=== PATIENT | female | born 1965 ===

== ENCOUNTER 2017-07-08 14:20 | Inpatient (IN) | payer BC ==
--- NOTE | 2017-07-08 14:38 | ED PDOC ---
Arrival/HPI - General Time Seen by Provider: 07/08/17 14:38 Historian: Patient, Spouse - History of Present Illness Narrative History of Present Illness (Text): 07/08/17 14:38 Patient came with her spouse. She stated she prefers to speak about the reason she came to the Emergency department when she gets into a room. She is currently sitting on the hallway. 07/08/17 16:45 This 52 yo female with pmh fibromyalgia, anxiety, presents to this Emergency department for psychiatric evaluation. Patient and spouse stated she has been feeling "Depressed". Patient stated she has been feeling depressed for a long time. But more recent she has been having ideas to hurt herself. She wanted to drive her car and crash. Past Medical History - Provider Review Nursing Documentation Reviewed: Yes Family/Social History - Physician Review Nursing Documentation Reviewed: Yes Family/Social History: Other (noncontributory) Allergies/Home Meds Allergies/Adverse Reactions: Allergies No Known Allergies Allergy (Verified 07/09/17 00:18) Home Medications: Home Meds Medication Instructions Recorded Confirmed DULoxetine [Cymbalta] 10 mg PO DAILY 07/08/17 07/08/17 Hydrochlorothiazide [Microzide] 25 mg PO DAILY 07/08/17 07/08/17 Meloxicam [Mobic] 15 mg PO DAILY 07/08/17 07/08/17 Gabapentin 100 mg PO BID 07/09/17 07/09/17 Pantoprazole Sodium [Protonix] 40 mg PO DAILY PRN 07/09/17 07/09/17 Review of Systems - Review of Systems Constitutional: Normal. absent: Fatigue, Weight Change, Fevers Eyes: Normal ENT: Normal Respiratory: Normal Cardiovascular: Normal Gastrointestinal: Normal Genitourinary Female: Normal Musculoskeletal: Normal Skin: Normal Neurological: Normal Endocrine: Normal Hemo/Lymphatic: Normal Psychiatric: Anxiety, Depression, Suicidal Ideation Physical Exam Vital Signs Temp Pulse Resp BP Pulse Ox 07/08/17 15:01 98.4 F 82 18 136/77 99 Temperature: Afebrile Blood Pressure: Normal Pulse: Regular Respiratory Rate: Normal Appearance: Positive for: Well-Appearing, Non-Toxic, Comfortable Pain Distress: None Mental Status: Positive for: Alert and Oriented X 3 - Systems Exam Head: Present: Atraumatic, Normocephalic Pupils: Present: PERRL Extroacular Muscles: Present: EOMI Conjunctiva: Present: Normal Mouth: Present: Moist Mucous Membranes Neck: Present: Normal Range of Motion Respiratory/Chest: Present: Clear to Auscultation, Good Air Exchange. No: Respiratory Distress, Accessory Muscle Use Cardiovascular: Present: Regular Rate and Rhythm, Normal S1, S2. No: Murmurs Abdomen: Present: Normal Bowel Sounds. No: Tenderness, Distention, Peritoneal Signs Back: Present: Normal Inspection Upper Extremity: Present: Normal Inspection. No: Cyanosis, Edema Lower Extremity: Present: Normal Inspection. No: Edema Neurological: Present: GCS=15, CN II-XII Intact, Speech Normal Skin: Present: Warm, Dry, Normal Color. No: Rashes Psychiatric: Present: Alert, Oriented x 3, Anxious, Depressed Mood, Suicidal Ideation Medical Decision Making ED Course and Treatment: 07/08/17 18:14 Patient feels very anxious at this time, and she is requesting medication to calm her down. I ordered Ativan 1 mg PO 07/08/17 20:53 PES screener had consulted with psychiatrist Dr. Pinto who recommends admission for major depression Re-evaluation Time: 20:53 Reassessment Condition: Re-examined, Improving,but remains with symptoms - Lab Interpretations Lab Results: 07/08/17 17:35 07/08/17 17:35 Lab Results 07/08/17 17:40: Urine Opiates Screen Negative, Urine Methadone Screen Negative, Ur Barbiturates Screen Negative, Ur Phencyclidine Scrn Negative, Ur Amphetamines Screen Negative, U Benzodiazepines Scrn Negative, U Oth Cocaine Metabols Negative, U Cannabinoids Screen Negative 07/08/17 17:40: Urine Color Yellow, Urine Appearance Sl cloudy, Urine pH 6.0, Ur Specific [place] 1.010, Urine Protein Negative, Urine Glucose (UA) Negative, Urine Ketones 15 H, Urine Blood Negative, Urine Nitrate Negative, Urine Bilirubin Negative, Urine Urobilinogen 0.2, Ur Leukocyte Esterase Small H, Urine RBC Negative, Urine WBC 0 - 2, Ur Epithelial Cells Many, Urine Bacteria Few, Urine HCG, Qual Negative 07/08/17 17:35: Alcohol, Quantitative < 10 07/08/17 17:35: Salicylates < 1 L, Acetaminophen < 10.0 L 07/08/17 17:35: Sodium 141, Potassium 3.5 L, Chloride 104, Carbon Dioxide 24, Anion Gap 16, BUN 17, Creatinine 0.6 L, Est GFR ( Amer) > 60, Est GFR ( Non-Af Amer) > 60, Random Glucose 80, Calcium 10.5, Total Bilirubin 0.4, AST 28 , ALT 46, Alkaline Phosphatase 82, Total Protein 7.0, Albumin 4.2, Globulin 2.8 , Albumin/Globulin Ratio 1.5 07/08/17 17:35: WBC 6.8, RBC 4.54, Hgb 13.7, Hct 40.3, MCV 88.8, MCH 30.2, MCHC 34.0, RDW 13.0, Plt Count 291, MPV 9.8, Gran % 64.5, Lymph % (Auto) 29.5, [place] % (Auto) 4.0, Eos % (Auto) 1.6, Baso % (Auto) 0.4, Gran # 4.39, Lymph # (Auto) 2.0, [place] # (Auto) 0.3, Eos # (Auto) 0.1, Baso # (Auto) 0.03 I have reviewed the lab results: Yes Interpretation: No clinic. lab abnormalty - RAD Interpretation Radiology Orders: 07/08/17 16:54 CHEST PORTABLE [RAD] Stat - Medication Orders Current Medication Orders: Acetaminophen (Tylenol 325mg Tab) 650 mg PO Q6H PRN PRN Reason: Pain, moderate (4-7) Al Hydrox/Mg Hydrox/Simethicone (Maalox Plus 30 Ml) 30 ml PO DAILY PRN PRN Reason: Indigestion / Heartburn Duloxetine HCl (Cymbalta) 30 mg PO DAILY [facility] Last Admin: 07/09/17 10:35 Dose: 30 mg Ergocalciferol (Drisdol 50,000 Intl Units Cap) 1 cap PO Q7D [facility] Gabapentin (Neurontin) 100 mg PO BID JOSELINE PRN Reason: Protocol Last Admin: 07/09/17 10:35 Dose: 100 mg Behavioural Document 07/09/17 10:35 RGO (Rec: 07/09/17 10:35 RGO [id number]) Maintenance Maintenance Dose Yes Home Med (Home Med) 1 unit PO DAILY PRN PRN Reason: Constipation Hydroxychloroquine Sulfate (Plaquenil) 200 mg PO DAILY [facility] Last Admin: 07/09/17 14:34 Dose: 200 mg Lorazepam (Ativan) 0.5 mg PO Q6H PRN; Protocol PRN Reason: Anxiety Last Admin: 07/09/17 10:40 Dose: 0.5 mg Behavioural Document 07/09/17 10:40 RGO (Rec: 07/09/17 10:40 RGO [id number]) Maintenance Maintenance Dose No Nonmedicinal Nonmedicinal Interventions Therapeutic Communication Behavior Behavior for Medication: Anxiety Re-Assess: Reassess Psych Meds Document 07/09/17 11:40 RGO (Rec: 07/09/17 13:25 RGO [id number]) Reassess Psych Med Effective Magnesium Hydroxide (Milk Of Magnesia) 30 ml PO DAILY PRN PRN Reason: Constipation Meloxicam (Mobic) 15 mg PO DAILY [facility] Last Admin: 07/09/17 10:35 Dose: 15 mg Pantoprazole Sodium (Protonix Ec Tab) 40 mg PO DAILY PRN PRN Reason: Indigestion / Heartburn Zolpidem Tartrate (Ambien) 5 mg PO HS PRN; Protocol PRN Reason: Insomnia Discontinued Medications Lorazepam (Ativan) 1 mg PO ONCE ONE PRN Reason: Protocol Stop: 07/08/17 18:18 Last Admin: 07/08/17 20:28 Dose: 1 mg Meloxicam (Mobic) 15 mg PO DAILY PRN PRN Reason: breakthrough pain Disposition/Present on Arrival - Present on Arrival Any Indicators Present on Arrival: No History of DVT/PE: No History of Uncontrolled Diabetes: No Urinary Catheter: No History of Decub. Ulcer: No - Disposition Have Diagnosis and Disposition been Completed?: Yes Diagnosis: Major depression Disposition: HOSPITALIZED Disposition Time: 20:54 Patient Plan: Admission Patient Problems: Current Active Problems Problem Status Onset Major depression Acute Condition: STABLE
[2017-07-08 15:03] VITALS: O2SAT 99
[2017-07-08 17:55] LABS: BASO # 0.03 K/mm3 (0.0-2.0); BASO % 0.4 % (0.0-3.0); EOS # 0.1 (0.0-0.7); EOS % 1.6 % (1.5-5.0); GRAN # 4.39 (1.4-6.5); GRAN % 64.5 % (50.0-68.0); HEMOGLOBIN 13.7 g/dL (12.0-16.0); LYMPH % 29.5 % (22.0-35.0); MEAN CELL VOLUME 88.8 fl (80.0-105.0); MEAN CORPUSCULAR HEMOGLOBIN 30.2 pg (25.0-35.0); MEAN PLATELET VOLUME 9.8 fl (7.0-11.0); MONO # 0.3 (0.1-0.6); RBC 4.54 10^6/uL (3.5-6.1); WHITE BLOOD COUNT 6.8 10^3/ul (4.5-11.0)
[2017-07-08 18:03] LABS: URINE BILIRUBIN NEGATIVE (NEGATIVE); URINE BLOOD NEGATIVE (NEGATIVE); URINE GLUCOSE (UA) NEGATIVE (NEGATIVE); URINE LEUKOCYTE ESTERASE SMALL Leu/uL (NEGATIVE); URINE NITRATE NEGATIVE (NEGATIVE); URINE PROTEIN NEGATIVE mg/dL (<30 mg/dL); URINE UROBILINOGEN 0.2 E.U./dL (<1 E.U./dL)
[2017-07-08 18:09] LABS: URINE APPEARANCE SL CLOUDY (CLEAR); URINE COLOR YELLOW (YELLOW)
[2017-07-08 18:10] LABS: ALB/GLOB RATIO 1.5 (1.1-1.8); ALBUMIN 4.2 g/dL (3.0-4.8); ALT/SGPT 46 U/L (7-56); AST/SGOT 28 U/L (14-36); BLOOD UREA NITROGEN 17 mg/dL (7-21); CALCIUM 10.5 mg/dL (8.4-10.5); GFR AFRICAN-AMERICAN > 60; GFR NON-AFRICAN AMERICAN > 60
[2017-07-08 18:17] LABS: ACETAMINOPHEN < 10.0 ug/ml (10.0-20.0); SALICYLATE < 1 mg/dL (2.0-20.0)
[2017-07-08 18:27] LABS: BARBITURATES, UR NEGATIVE (NEGATIVE); BENZODIAZEPINES, UR NEGATIVE (NEGATIVE); OPIATES, UR NEGATIVE (NEGATIVE); PHENCYCLIDINE, UR NEGATIVE (NEGATIVE)
[2017-07-08 18:33] LABS: HCG,QUALITATIVE URINE NEGATIVE (NEGATIVE); URINE BACTERIA FEW (NEG); URINE EPITHELIAL CELLS MANY /hpf (0-5); URINE RBC NEGATIVE /hpf (0-2); URINE WBC 0 - 2 /hpf (0-6)
[2017-07-08] MEDS ORDERED: Magnesium Hydroxide Susp 30 ml UD PO PRN (23:59)
[2017-07-08] MEDS ORDERED: Alum-Mag Hydrox-Simethicone Susp (30 mL) PO PRN (23:59)
[2017-07-09] MEDS ORDERED: Pantoprazole 40 mg EC Tab PO PRN (00:14)
[2017-07-09 00:21] VITALS: BMI 31.2
--- NOTE | 2017-07-09 01:14 | PCM.BM ---
Treatment Plan Problems - Problems identified on initial assessmt Ineffective Coping Date Initiated: 07/08/17 Time Initiated: 22:30 Assessment reference: NA Status: Active Priority: 1 Hopelessness/Helplessness Date Initiated: 07/08/17 Time Initiated: 22:30 Assessment reference: NA Status: Active Priority: 2 Feelings of Worthlessness Date Initiated: 07/08/17 Time Initiated: 22:30 Assessment reference: NA Status: Active Priority: 3 Altered Sleep Patterns Date Initiated: 07/08/17 Time Initiated: :30 Assessment reference: NA Status: Active Priority: 4 Treatment assets and liabiliti Patient Assests: cooperative, ADL independent, good support system, cognitively intact, good interpersonal skills, strong catalina Patient Liabilities: physical pain, medical problems - Milieu Protocol Maintain good personal hygiene: daily Encourage regular showers, every shift Remind patient to perform daily oral care, every shift Assist patient to perform ADL's Maintain personal safety: every shift Educate patient to report safety concerns to staff, every shift Monitor environment for contraband/sharps Medication safety: Monitor for expected outcome, potential side effects: every shift, Assess barriers to learning: every shift, Assess readiness for medication education: every shift Family Contact Family involvement: Family/SO is involved Family contact: Patient agrees to contact - Goals for Treatment Patient goals for treatment: "I don't want to hurt myself. My family will be destroyed. I am Ep[employer], too." Discharge/Continuing Care - Education Needs Education Needs: Family Medication, Family Diagnosis/Disease Process, Family Coping Skills, Family Pain, Family Health Practices/Safety, Family Aftercare Safety Plan, Patient Medication, Patient Diagnosis/Disease Process, Patient Coping Skills, Patient Anger Management skills, Patient Placement options, Patient Community resources, Patient Activities of Daily Living, Patient Pain, Patient Nutrition, Patient Uses of Medical Equipment, Patient Health Practices/ Safety, Patient Personal Hygiene/Grooming, Patient Aftercare Safety Plan, Patient Other - Discharge Discharge Criteria: Tolerates medication w/o severe side effects, Free of Suicidal thoughts, Normal sleep pattern
[2017-07-09 07:02] VITALS: RESP 20
--- NOTE | 2017-07-09 08:34 | RAD ---
HISTORY: PES eval COMPARISON: No prior. FINDINGS: LUNGS: The lungs are well inflated and clear. PLEURA: No significant pleural effusion identified, no pneumothorax apparent. CARDIOVASCULAR: Normal. OSSEOUS STRUCTURES: No significant abnormalities. VISUALIZED UPPER ABDOMEN: Normal. OTHER FINDINGS: None. IMPRESSION: No active pulmonary disease.
[2017-07-09 08:53] LABS: GLUCOSE,FASTING 86 mg/dL (65-110); HDL CHOLESTEROL 61 mg/dL (29-60)
[2017-07-09 09:04] LABS: LDL CHOLESTEROL 128 mg/dL (0-129)
[2017-07-09] MEDS ORDERED: LINZESS 145 MG PO PRN (10:31)
--- NOTE | 2017-07-09 10:41 | CARD ---
APPROVED REPORT EKG Measurement Heart [id number] <Conclusion> Normal sinus rhythm Normal ECG
--- NOTE | 2017-07-09 17:13 | CON ---
DATE: 07/09/2017 NEUROLOGY CONSULT CHIEF COMPLAINT: Evaluate for fibromyalgia. HISTORY OF PRESENT ILLNESS: This is a 52-year-old woman with history of anxiety, rheumatoid arthritis, lupus, fibromyalgia, and depression, who came in for worsening depressive affects, felt like she has been depressed for long time, having lot of stress. Therefore, a psychiatric evaluation and management are undergoing in the hospital and was consulted for fibromyalgia. She has diffuse musculoskeletal pain, for which she is on Cymbalta and gabapentin, she is on a good therapeutic dose. Currently, she is more depressed and I think we should continue to focus on her depression management rather than fibromyalgia at this time and can follow with her tray setter as an outpatient. No focal weakness of the extremities. No current paresthesias at this time. PAST MEDICAL HISTORY: History of rheumatoid arthritis, SLE, fibromyalgia, and anxiety. REVIEW OF SYSTEMS: A 14-point review of systems is negative except as per the HPI. ALLERGIES: NO KNOWN DRUG ALLERGIES. MEDICATIONS: Reviewed by nursing reconciliation sheet. FAMILY HISTORY: Noncontributory. SOCIAL HISTORY: No illicit drug use, smoking, or EtOH abuse. PHYSICAL EXAMINATION: VITAL SIGNS: Temperature 98.5, pulse rate 95, blood pressure of 111/77, respiratory rate 20, oxygen saturation 99% by room air. GENERAL: The patient is sitting up in bed, in no acute distress. HEENT: Atraumatic, normocephalic. PERRLA. Extraocular muscles intact. NECK: Supple. No JVD, no adenopathy noted. LUNGS: Clear to auscultation. No adventitious sounds. HEART: S1 and S2. Normal rate and rhythm. No murmurs, rubs, or gallops. ABDOMEN: Soft, nontender, and nondistended. Bowel sounds are present. EXTREMITIES: No clubbing. No cyanosis. Peripheral pulses 2+ felt bilaterally. NEUROLOGIC: She has a very flat and anxious effect. She is mostly depressed. Speech is fluent without any errors. Cranial nerves II through XII intact. Motor exam: Moves all extremities equally. No pronator drift seen. Sensory exam: Light touch, pinprick, proprioception, and vibration intact. DTRs are 2+ throughout, one at the ankles. Coordination: [id number] intact. Gait is deferred for now. LABORATORY DATA: Sodium 141, potassium 3.5, chloride 104, carbon dioxide 24. BUN of 17, creatinine 0.6. Random glucose of 86. ASSESSMENT AND PLAN: This is a 52-year-old woman with history of systemic lupus erythematosus, rheumatoid arthritis, fibromyalgia, anxiety, depression, who comes in with worsening depressive symptoms, currently being managed as inpatient fibromyalgia is most likely over myofascial pain syndrome. Recommend to continue her current dose of Cymbalta 30 mg p.o. daily and could increase her gabapentin to 200 p.o. b.i.d. At this time, continue psychiatric management in regards to her depression and continue Plaquenil in regards to her underlying history of rheumatoid arthritis and systemic lupus erythematosus and continue current present medical management. Thank you for this consult. Tylor Thibodeaux MD
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
[2017-07-11] MEDS: LINZESS 145 MG PO PRN (09:15)
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
--- NOTE | 2017-07-11 21:34 | PCM.BM ---
Treatment Plan Problems - Problems identified on initial assessmt Ineffective Coping Date Initiated: 07/08/17 Time Initiated: 22:30 Assessment reference: NA Status: Active Priority: 1 Hopelessness/Helplessness Date Initiated: 07/08/17 Time Initiated: 22:30 Assessment reference: NA Status: Active Priority: 2 Feelings of Worthlessness Date Initiated: 07/08/17 Time Initiated: 22:30 Assessment reference: NA Status: Active Priority: 3 Altered Sleep Patterns Date Initiated: 07/08/17 Time Initiated: 22:30 Assessment reference: NA Status: Active Priority: 4 Treatment assets and liabiliti Patient Assests: cooperative, ADL independent, good support system, cognitively intact, good interpersonal skills, strong catalina Patient Liabilities: physical pain, medical problems - Diagnosis (1) Major depression Status: Acute Interventions: 07/11/17 21:33 * Assess/adjust medications daily and /or as needed * Discuss risks, benefits, side effects and alternatives of medications * See patient on an individual basis 7x/week to assess level of suicidal thoughts * - Milieu Protocol Maintain good personal hygiene: daily Encourage regular showers, every shift Remind patient to perform daily oral care, every shift Assist patient to perform ADL's Maintain personal safety: every shift Educate patient to report safety concerns to staff, every shift Monitor environment for contraband/sharps Medication safety: Monitor for expected outcome, potential side effects: every shift, Assess barriers to learning: every shift, Assess readiness for medication education: every shift Milieu Narrative: Remains hopeless, helpless, depressed, suicidal.iiiiiiiiiiiiiiiiiiiiiiiiiiiiiiiiiiiiiiiiiiiiiiiiiiiiiiiiiiiiiiiiiiiiiii iiiiiiiiiiiiiiiiiiiikkkkkkkkiii Family Contact Family involvement: Family/SO is involved - Goals for Treatment Patient goals for treatment: "I don't want to hurt myself. My family will be destroyed. I am Buddhist, too." Discharge/Continuing Care - Education Needs Education Needs: Family Medication, Family Diagnosis/Disease Process, Family Coping Skills, Family Pain, Family Health Practices/Safety, Family Aftercare Safety Plan, Patient Medication, Patient Diagnosis/Disease Process, Patient Coping Skills, Patient Anger Management skills, Patient Placement options, Patient Community resources, Patient Activities of Daily Living, Patient Pain, Patient Nutrition, Patient Uses of Medical Equipment, Patient Health Practices/ Safety, Patient Personal Hygiene/Grooming, Patient Aftercare Safety Plan, Patient Other - Discharge Discharge Criteria: Tolerates medication w/o severe side effects, Free of Suicidal thoughts, Normal sleep pattern - Treatment Team Participation Patient/Family/SO Statement: Remains hopeless, helpless, depressed, suicidal.iiiiiiiiiiiiiiiiiiiiiiiiiiiiiiiiiiiiiiiiiiiiiiiiiiiiiiiiiiiiiiiiiiiiiii iiiiiiiiiiiiiiiiiiiikkkkkkkkiii
[2017-07-12] MEDS: LINZESS 145 MG PO PRN (12:47)
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
--- NOTE | 2017-07-12 18:15 | CON ---
DATE: HISTORY OF PRESENT ILLNESS: The patient is a 52-year-old female, who is admitted to under Dr. Pinto's care with the diagnoses of major depression and suicidal ideation. The patient is new to me as I have been called for medical consultation. The patient has a history of fibromyalgia and lupus. There was an element of posttraumatic stress disorder as the patient lost her 5-year-old daughter years ago. Apparently, the patient's suicidal ideation had increased over the past several weeks. As the patient's became aware, he urged her to present to the emergency room, which she did and for which she is now being treated. When seen, the patient was resting comfortably. She does not appear to be in any acute distress. She was awake, alert, and oriented and willingly gave her history. SOCIAL HISTORY: She apparently is a nonsmoker, nonalcoholic drinker. She is with two other children at home. MEDICATIONS: Include, Plaquenil, Microzide, Mobic, Protonix, Cymbalta, and gabapentin. REVIEW OF SYSTEMS: Otherwise unremarkable. The patient does complain of fibromyalgia symptoms all over. During the interview, the patient began crying, hoping that she would get better, so she will be able to return to her children at home. PHYSICAL EXAMINATION: HEAD, EYES, EARS, NOSE AND THROAT: Unremarkable. NECK: Supple with no lymphadenopathy, no goiter. LUNGS: Clear to auscultation and percussion. HEART: Regular. No murmurs are appreciated. ABDOMEN: Soft, nontender with no organomegaly. EXTREMITIES: Free of cyanosis, clubbing, or edema. NEUROLOGIC: There were no focal neurological signs. LABORATORY STUDIES: Show white blood cell count to be 6.8, hemoglobin and hematocrit of 13.7 and 40.3 respectively, platelet count is 291. Sodium is 141, potassium is 3.5, blood urea nitrogen is 17, creatinine 0.6, nonfasting glucose is 80. Her thyroid stimulating hormone is normal at 3.11. Liver function tests were normal. Her EKG showed regular sinus rhythm. Chest x-ray showed no acute disease. ASSESSMENT AND PLAN: At this point, I noted that her Cymbalta, which she had been taking at 30 mg a day, had been increased to 60 mg a day. Her other medications are being continued. If the fibromyalgia symptoms continue, I would suggest increasing her gabapentin from 200 mg twice a day to 300 mg twice a day. The patient is medically stable for now this Saturday morning, 07/10, and I will be stopping by to see the patient periodically. Oj Carter MD MTDMaria R
--- NOTE | 2017-07-13 09:19 | PCM.PYCHPN ---
Psychiatric Progress Note - Psychiatric Progress Note Patient seen today, length of contact: 25 min Patient Chief Complaint: "I am not thinking about the stupid stuff, I am more hopeful" Problems Identified/Issues Discussed: I reviewed assessment and recent notes. Patient was interviewed at bedside. She is well-oriented, calm and cooperative. Responses are goal-directed and relevant to questioning. She reports that she is better and states "I am not thinking about the stupid stuff, I am more hopeful". She denies any wishes or SI. Affect is constricted. She doesn't appear to be responding to internal stimuli and she denies hallucinations. Delusions were not elicited during this initial interview. Patient denies any new concerns, discomfort or pain. She is tolerating her medications well and slept well last night Patient has been in good control on the unit. There were no behavioral issues overnight. Diagnostic Results: MAJOR DEPRESSIVE DISORDER, SEVERE Medication Change: No Medical Record Reviewed: Yes Mental Status Examination - Cognitive Function Orientation: Person, Place, Situation, Time Memory: Intact Attention: WNL Concentration: WNL Association: WNL Fund of Knowledge: WNL - Mood Mood: Depressed ("I am not thinking about the stupid stuff, I am more hopeful") - Affect Affect: Constricted, Depressed - Speech Speech: Appropriate, Soft - Formal Thought Process Formal Thought Process: No Impairment, Other ( ) - Suicidal Ideation Suicidal Ideation: Yes - Homicidal Ideation Homicidal Ideation: No Goal/Treatment Plan - Goal/Treatment Plan Progress Toward Problem(s) and Goals/Treatment Plan: c/w current tx and plan No new weekend labs thus far Vitals reviewed and noted below: Selected Entries 07/13/17 07:34 Temperature 97.9 F Pulse Rate 62 Respiratory 20 Rate Blood Pressure 115/69
[2017-07-13] MEDS: LINZESS 145 MG PO PRN (22:07)
[2017-07-14] MEDS ORDERED: Ergocalciferol 50,000 Intl Units Cap PO SCH (09:00)
--- NOTE | 2017-07-14 11:02 | PCM.PYCHPN ---
Psychiatric Progress Note - Psychiatric Progress Note Patient seen today, length of contact: 25 min Patient Chief Complaint: "I am not thinking about the stupid stuff, I am more hopeful" Problems Identified/Issues Discussed: I reviewed recent notes and met with patient at bedside again. She remains well -oriented, calm and cooperative. Responses are goal-directed and relevant to questioning. She reports that she is better and feels more hopeful. She denies any wishes or SI. Affect is constricted. She doesn't appear to be responding to internal stimuli and she denies hallucinations. Delusions were not elicited during this initial interview. Patient denies any new discomfort or pain. She is tolerating her medications well and slept well last night though feels that sleeping aid was given to her too late. Patient has been in good control on the unit. Attended group. Appears depressed on the unit and doesn't interact very much. She had a positive family visit yesterday. There were no behavioral issues over the weekend. Diagnostic Results: MAJOR DEPRESSIVE DISORDER, SEVERE Medication Change: No Medical Record Reviewed: Yes Mental Status Examination - Cognitive Function Orientation: Person, Place, Situation, Time Memory: Intact Attention: WNL Concentration: WNL Association: [facility] Fund of Knowledge: [facility]N - Mood Mood: Depressed ("I am not thinking about the stupid stuff, I am more hopeful") - Affect Affect: Constricted, Depressed - Speech Speech: Appropriate, Soft - Formal Thought Process Formal Thought Process: No Impairment, Other ( ) - Suicidal Ideation Suicidal Ideation: Yes - Homicidal Ideation Homicidal Ideation: No Goal/Treatment Plan - Goal/Treatment Plan Progress Toward Problem(s) and Goals/Treatment Plan: c/w current tx and plan No new weekend labs Vitals reviewed and noted below: Selected Entries 07/14/17 07:13 Temperature 98.4 F Pulse Rate 94 H Respiratory 20 Rate Blood Pressure 103/73
[2017-07-15 07:05] VITALS: TEMP 97.9
[2017-07-15] MEDS: LINZESS 145 MG PO PRN (08:50)
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
[2017-07-16] MEDS: LINZESS 145 MG PO PRN (13:59)
[2017-07-17 07:10] VITALS: BP 110/75; PULSE 94
--- NOTE | 2017-07-17 08:22 | PN ---
DATE: 07/16/2017 PSYCHIATRIC PROGRESS NOTE The patient was seen for 25 minutes. CHIEF COMPLAINT: Depression, anxiety, inability to sleep, suicidal ideation. PROBLEMS IDENTIFIED: I discussed her mood lability, including her suicidality, hallucinations, tinnitus, tingling sensation in her elbows with increasing pain. MEDICAL PROBLEMS: The patient is dealing with fibromyalgia, lupus, and tinnitus. Diagnostic results reviewed. DSM SYMPTOMS UPDATE: The patient's mood and affect improved. She is, however, having trouble sleeping and thinks that if she can sleep, she might feel better. I have increased her Ambien from 5 to 10 mg in an attempt to affect more effective sleep and perhaps then a more effective symptoms. Thus, her medication has been changed. Her medical record was reviewed as were consults. PHYSICAL EXAMINATION: MENTAL STATUS: She is oriented x3, her memory is intact as is her attention, concentration, association, and fund of knowledge. She is showing significant insight and judgment into the nature of her condition. She is depressed, but less so, her affect is constricted, but less so, her speech is appropriate, but soft. Gonzalez Pinto MD/ PhD
--- NOTE | 2017-07-17 15:42 | PCM.PYCHDC ---
Mental Status Examination - Mental Status Examination Orientation: Person, Place, Situation, Time Memory: Intact Mood: Neutral (4) Affect: Other Speech: Appropriate Attention: WNL Concentration: WNL Association: WNL Fund of Knowledge: WNL Formal Thought Process: No Impairment Description of patient's judgement and insight: Patient having intense depressive thoughts, inability to sleep, self punitive guilt, suicidality.iiiiiiiiiiiiiiiiii On 216 I am surprised that the lack of insight or willingness of patient to speak about her feelings over the years, of the intrusive thoughts, feelings of guilt, how this is impacted on her activities of daily living over the years. I have tried to reinforce that she has done a very good job of raising her family and leaving a productive life that would be fulfilling to most people. Psychotic Thoughts and Behaviors: Still has auditory hallucinations of comment periodically. Suicidal Ideation: No Current Homicidal Ideation?: No Discharge Summary - Discharge Note Reason for Hospitalization: Depression with suicidal thoughts. Patient had become more depressed since developing more symptomatic lupus and fibromyalgia at the tinnitus. fibromyalgia.44 Had still been grieving over the of her daughter in 1988 at age 6. Patient had been blaming herself even though she wasn't home. Daughter had choked on a grape. Psychiatric History (includes Medical, Family, Personal Hx): No formal psychiatric history. Her PMD had put her on Cymbalta Consultations:: List each consultation separately and include: 1. Reason for request. 2. Findings. 3. Follow-up Consultations: Reviewed Summary of Hospital Course include:: 1. Description of specific treatment plan utilized for patients during their course of treatmen. 2. Summarize the time- course for resolution of acute symptoms and/or regressed behaviors. 3. Describe issues identified and worked on during hospitalization. 4. Describe medication utilized. 5. Describe medical problems identified and treated. 6. Reassessment of suicide risk Summary of Hospital Course: - - Diagnosis (1) Major depression Current Visit: Yes Status: Acute (2) Major depression with psychotic features Current Visit: Yes Status: Acute - Final Diagnosis (DSM 5) Condition upon Discharge: STABLE Follow-up Treatment Plan: Remains hopeless, helpless, depressed, suicidal.iiiiiiiiiiiiiiiiiiiiiiiiiiiiiiiiiiiiiiiiiiiiiiiiiiiiiiiiiiiiiiiiiiiiiii iiiiiiiiiiiiiiiiiiiikkkkkkkkiii On 07/12 her mood and affect are improving. She seems less self punitive and more interactive. Perhaps this is a response to the risperidone that was started yesterday. We'll continue to monitor this suicidal psychotic patient Prescriptions/Medication Reconciliation: Zolpidem [Ambien] 10 mg PO HS #14 tab LORazepam [Ativan] 0.5 mg PO Q6H PRN #14 tab PRN Reason: Anxiety LORazepam [Ativan] 0.5 mg PO HS #14 tab LORazepam [Ativan] 0.5 mg PO BID #14 tab DULoxetine [Cymbalta] 60 mg PO DAILY #14 ecc Home Med 1 unit PO PRN PRN #14 ea PRN Reason: Constipation Gabapentin [Neurontin] 200 mg PO TID 14 Days cap Pantoprazole [Protonix EC Tab] 40 mg PO DAILY PRN #14 ect PRN Reason: Indigestion / Heartburn risperiDONE [RisperDAL Tab] 0.25 mg PO HS 14 Days tab - Smoking Cessation Smoking Cessation Medication prescribed: No Reason for not providing: Nonsmoker - Antipsychotic Medications Pt discharged on 2 or more routine antipsychotic medications: No
== END 2017-07-17 15:47 | disposition home or self-care (01) | DRG 885 ==
LOC: ED 14:20 → ERH 20:51 → PSYC 22:33
PROVIDERS: ADMIT Psychiatry & Neurology Addiction Medicine; ATTEND Psychiatry & Neurology Addiction Medicine
PROC: GZ3ZZZZ Medication Management (ICD-10-PCS; principal; 2017-07-09)
DX: F32.3 Major depressive disorder, single episode, severe with psychotic features (principal); R45.851 Suicidal ideations; M32.9 Systemic lupus erythematosus, unspecified; M06.9 Rheumatoid arthritis, unspecified; M79.7 Fibromyalgia; H93.19 Tinnitus, unspecified ear; G47.00 Insomnia, unspecified; F43.10 Post-traumatic stress disorder, unspecified; Z63.4 Disappearance and death of family member